=== PATIENT | female | born 1995 | race Caucasian/White ===

== ENCOUNTER 2016-06-03 17:15 | Emergency (ER) | payer OTHER ==
[2016-06-03 18:16] VITALS: BP 126/73
--- NOTE | 2016-06-03 18:32 | ER Document Report ---
ED Medical Screen (RME) - General Stated Complaint: HEADACHE Notes: 20 yo female c/o frontal headache. hx/o daily migraines but pt c/o visual disturbance with double vision x 2 days. no fever. no n/v. + photosensitivity. no relief with Tylenol. Pt is 30 weeks . OB - Dr Damon TRAVEL OUTSIDE OF THE [place] IN LAST 30 DAYS: No - Related Data Allergies/Adverse Reactions: No Known Allergies Allergy (Unverified 12/24/15 09:59) Past Medical History - Immunizations Hx Diphtheria, Pertussis, Tetanus Vaccination: Yes Physical Exam - Vital signs Vitals: Temp Pulse Resp BP Pulse Ox 98.1 F 95 18 126/73 H 100 06/03/16 18:13 06/03/16 18:13 06/03/16 18:13 06/03/16 18:13 06/03/16 18:13 Course - Vital Signs Vital signs: Temp Pulse Resp BP Pulse Ox 98.1 F 95 18 126/73 H 100 06/03/16 18:13 06/03/16 18:13 06/03/16 18:13 06/03/16 18:13 06/03/16 18:13
[2016-06-03 19:30] LABS: APPEARANCE,URINE CLEAR; BILIRUBIN,URINE NEGATIVE (NEGATIVE); GLUCOSE, URINE NEGATIVE (NEGATIVE); KETONES,URINE NEGATIVE (NEGATIVE); LEUKOCYTE ESTERASE,URINE NEGATIVE (NEGATIVE); NITRITE,URINE NEGATIVE (NEGATIVE); PROTEIN,URINE NEGATIVE (NEGATIVE); URINE SPECIFIC GRAVITY 1.014; UROBILINOGEN,URINE NEGATIVE mg/dL (<2.0)
--- NOTE | 2016-06-04 06:00 | L&D General Admission ---
General Admit Datetime Report Generated by CPN: 06/04/2016 06:00 INFORMATION Patient Age: 20 (06/03/2016 16:59:QS system process) EDC: 08/08/2016 00:00 (06/03/2016 17:09:Nadia Vitrano, RN) ALLERGIES Medication Allergies: No Known Allergies (12/24/2015) (06/03/2016 16:59:QS system process) DEMOGRAPHICS Address: [address] [place] [address] [place] [address] (06/03/2016 16:59:QS system process) Zipcode: [address] (06/03/2016 16:59:QS system process) Home (06/03/2016 16:59:QS system process) SSN: [id number] (06/03/2016 16:59:QS system process) Next of Kin Name: SALO CA (06/03/2016 16:59:QS system process) Next of Kin (06/03/2016 16:59:QS system process) Next of Kin Relationship: SPO (06/03/2016 16:59:QS system process) Date of : 1995 (06/03/2016 16:59:QS system process) Marital Status: (06/03/2016 16:59:QS system process) Sex: Female (06/03/2016 16:59:QS system process) Race: (06/03/2016 16:59:QS system process) Ethnicity: Non- or (06/03/2016 16:59:QS system process) Faith: None (06/03/2016 16:59:QS system process)
== END 2016-06-03 22:20 | disposition left against medical advice (07) ==
LOC: EDSTATUS 17:15 → ER 17:15
DX: O26.893 Other specified pregnancy related conditions, third trimester (principal); R51 Headache; H53.149 Visual discomfort, unspecified; H53.2 Diplopia; Z3A.30 30 weeks gestation of pregnancy; Z53.20 Procedure and treatment not carried out because of patient's decision for unspecified reasons
CPT/HCPCS: 81001; 99281

== ENCOUNTER 2016-07-12 10:17 | Outpatient (CLI) | payer OTHER ==
[2016-07-12 11:11] LABS: APPEARANCE,URINE SLIGHTLY-CLOUDY; BILIRUBIN,URINE NEGATIVE (NEGATIVE); GLUCOSE, URINE NEGATIVE (NEGATIVE); KETONES,URINE NEGATIVE (NEGATIVE); LEUKOCYTE ESTERASE,URINE LARGE (NEGATIVE); NITRITE,URINE NEGATIVE (NEGATIVE); PROTEIN,URINE NEGATIVE (NEGATIVE); URINE SPECIFIC GRAVITY 1.006; UROBILINOGEN,URINE NEGATIVE mg/dL (<2.0)
[2016-07-12 11:30] LABS: URINE BARBITURATES SCREEN NEGATIVE; URINE METHADONE SCREEN NEGATIVE; URINE OPIATES LOW NEGATIVE; URINE PHENCYCLIDINE SCREEN NEGATIVE
== END 2016-07-12 11:35 | disposition home or self-care (01) ==
LOC: LC 10:17
PROVIDERS: ATTEND Obstetrics & Gynecology
PROC: 4A1HXCZ Monitoring of Products of Conception, Cardiac Rate, External Approach (ICD-10-PCS; principal; 2016-07-12)
DX: O47.03 False labor before 37 completed weeks of gestation, third trimester (principal); Z3A.36 36 weeks gestation of pregnancy
CPT/HCPCS: 59025; 80307; 81001

== ENCOUNTER 2016-07-22 15:07 | Outpatient (CLI) | payer OTHER ==
[2016-07-22 16:08] LABS: APPEARANCE,URINE SLIGHTLY-CLOUDY; BILIRUBIN,URINE NEGATIVE (NEGATIVE); GLUCOSE, URINE NEGATIVE (NEGATIVE); KETONES,URINE NEGATIVE (NEGATIVE); LEUKOCYTE ESTERASE,URINE LARGE (NEGATIVE); NITRITE,URINE NEGATIVE (NEGATIVE); PROTEIN,URINE NEGATIVE (NEGATIVE); URINE SPECIFIC GRAVITY 1.006; UROBILINOGEN,URINE NEGATIVE mg/dL (<2.0)
[2016-07-22 16:28] LABS: URINE BARBITURATES SCREEN NEGATIVE; URINE METHADONE SCREEN NEGATIVE; URINE OPIATES LOW NEGATIVE; URINE PHENCYCLIDINE SCREEN NEGATIVE
[2016-07-22 17:38] LABS: ABSOLUTE LYMPHOCYTES (AUTO) 0.9 10^3/uL (0.5-4.7); ABSOLUTE NEUT (AUTO) 10.8 10^3/uL (1.7-8.2); BASOPHILS % (AUTO) 0.2 % (0-2); EOSINOPHILS % (AUTO) 0.2 % (0-6); HEMATOCRIT 26.1 % (36.0-47.0); HEMOGLOBIN 8.6 g/dL (12.0-15.5); HGB HCT DIFFERENCE -0.3; LYMPHOCYTES % (AUTO) 6.8 % (13-45); MEAN CORPUSCULAR HEMOGLOBIN 27.6 pg (27.0-33.4); MEAN CORPUSCULAR HGB CONC 33.1 g/dL (32.0-36.0); MEAN CORPUSCULAR VOLUME 84 fl (80-97); MONOCYTES % (AUTO) 8.2 % (3-13); RED BLOOD COUNT 3.13 10^6/uL (3.72-5.28); SEGMENTED NEUTROPHILS % (AUTO) 84.6 % (42-78); WHITE BLOOD COUNT 12.7 10^3/uL (4.0-10.5)
--- NOTE | 2016-07-22 18:33 | Non Stress Test Report ---
Non Stress Test Datetime Report Generated by CPN: 07/22/2016 18:33 DEMOGRAPHIC EGA NST: 37.4 EGA NST: 35.1 INDICATION Indication for Study: Ordered by Provider Indication for Study: Other Indication for Study (NST) Other: lc VITAL SIGNS Temperature - NST: 98.7 MONITORING Monitor Explained: Monitor Explained; Test Explained; Patient Verbalized Understanding Monitor Explained: Monitor Explained; Test Explained; Patient Verbalized Understanding Time on Monitor: 07/22/2016 15:31 Time on Monitor: 07/05/2016 10:30 Time off Monitor: 07/22/2016 17:58 Time off Monitor: 07/12/2016 11:30 NST Duration: 147 NST Duration: 12349 NST INTERVENTIONS NST Interventions: PO Hydration; Reposition Patient NST Interventions: PO Hydration; Reposition Patient Physician Notified NST: Dr. Tamez BABY A: [id number] BABY A Movement : Present Contraction Frequency : Irregular Contraction Frequency : 2-4 FHR Baseline : 135 FHR Baseline : 120 Accelerations : 15X15 Accelerations : 15X15 Decelerations : None Decelerations : None Variability : Moderate 6-25bpm Variability : Moderate 6-25bpm NST Review: Meets Criteria for Reactive NST NST Review: Meets Criteria for Reactive NST NST Review and Verified By : Sanam Morillo RNC NST Review and Verified By : César Mock, RN NST Results: Reactive NST Results: Reactive NST REPORT Report Trigger: Send Report
== END 2016-07-22 18:07 | disposition home or self-care (01) ==
LOC: LC 15:07
PROVIDERS: ATTEND Obstetrics & Gynecology
PROC: 4A1HXCZ Monitoring of Products of Conception, Cardiac Rate, External Approach (ICD-10-PCS; principal; 2016-07-22)
DX: O47.1 False labor at or after 37 completed weeks of gestation (principal); Z3A.37 37 weeks gestation of pregnancy
CPT/HCPCS: 36415; 59025; 80307; 81005; 85025

== ENCOUNTER 2016-07-30 15:25 | Outpatient (CLI) | payer OTHER ==
[2016-07-30 16:07] LABS: APPEARANCE,URINE CLEAR; BILIRUBIN,URINE NEGATIVE (NEGATIVE); GLUCOSE, URINE NEGATIVE (NEGATIVE); KETONES,URINE NEGATIVE (NEGATIVE); LEUKOCYTE ESTERASE,URINE NEGATIVE (NEGATIVE); NITRITE,URINE NEGATIVE (NEGATIVE); PROTEIN,URINE NEGATIVE (NEGATIVE); URINE SPECIFIC GRAVITY 1.004; UROBILINOGEN,URINE NEGATIVE mg/dL (<2.0)
[2016-07-30 16:29] LABS: URINE BARBITURATES SCREEN NEGATIVE; URINE METHADONE SCREEN NEGATIVE; URINE OPIATES LOW NEGATIVE; URINE PHENCYCLIDINE SCREEN NEGATIVE
--- NOTE | 2016-07-30 17:19 | Non Stress Test Report ---
Non Stress Test Datetime Report Generated by CPN: 07/30/2016 17:18 DEMOGRAPHIC EGA NST: 38.5 INDICATION Indication for Study: Ordered by Provider Indication for Study (NST) Other: LC MONITORING Monitor Explained: Monitor Explained; Test Explained; Patient Verbalized Understanding Time on Monitor: 07/30/2016 15:49 Time off Monitor: 07/30/2016 17:02 NST Duration: 73 NST INTERVENTIONS NST Interventions: PO Hydration Physician Notified NST: Dr. Beltran BABY A Movement : Present Contraction Frequency : none FHR Baseline : 135 Accelerations : 15X15 Decelerations : None Variability : Moderate 6-25bpm NST Review: Meets Criteria for Reactive NST NST Review and Verified By : João Jerry RN NST Results: Reactive NST REPORT Report Trigger: Send Report
--- NOTE | 2016-07-30 20:21 | L&D Discharge Summary ---
OB Discharge Summary Datetime Report Generated by CPN: 07/30/2016 20:21 DISCHARGE DIAGNOSIS Diagnosis/Symptoms: False Labor Diagnoses/Symptoms Other: Not in Labor Gestation: 37.4 Number of Babies in Womb: 1 Parity: 0 DIET/ACTIVITY/RESTRICTIONS Diet: Regular Activity: Normal Activity TEACHING/INSTRUCTIONS/REFERRALS Instructions Given To: pt, pt Instructions Understood: Patient Verbalized Understanding Referrals: None Educational Materials- Other: kick counts, term labor DISCHARGE INFORMATION Discharged AMA: No Physician Notified of Disch AMA: Dr Beltran Discharge Date/Time: 07/30/2016 07:09 Discharged To: Home Discharge Provider Name: Dr. Beltran Accompanied By: Discharge Method: Ambulatory Condition: Stable FOLLOW UP INFORMATION Follow Up With: [facility] Follow Up On: As Scheduled Follow Up Phone Number: [facility] - Comments: Pt instructed to start taking iron and vitamin C supplement 3x/day. Pt verbalized understanding. GENERAL INSTR-CALL PROVIDER IF: Contractions: Contractions or cramps become more frequent than 8 in one hour or 4 in 20 minutes; Regular painful contractions every 5 minutes or less for one hour. Time your contractions from the beginning of one to the beginning of the next Gush of Fluid/Blood: Gush of fluid or blood from your vagina (it is normal to have spotting after vaginal exam or intercourse) Decreased Movement: Your baby is not moving as much as usual- 4 movements in 1 hour after drinking and resting on side Temperature: Temperature greater than 100.0(F) orally
== END 2016-07-30 17:09 | disposition home or self-care (01) ==
LOC: LC 15:25
PROVIDERS: ATTEND Obstetrics & Gynecology
PROC: 4A1HXCZ Monitoring of Products of Conception, Cardiac Rate, External Approach (ICD-10-PCS; principal; 2016-07-30)
DX: O47.1 False labor at or after 37 completed weeks of gestation (principal); Z3A.37 37 weeks gestation of pregnancy
CPT/HCPCS: 59025; 80307; 81005

== ENCOUNTER 2016-07-31 08:34 | Inpatient (IN) | payer OTHER ==
[2016-07-31] MEDS ORDERED: RINGERS SOLUTION,LACTATED 1,000 ML IV ONE (09:07)
[2016-07-31] MEDS ORDERED: RINGERS SOLUTION,LACTATED 1,000 ML IV PRN ×2 (09:07)
[2016-07-31] MEDS ORDERED: DEXTROSE 5%-LACTATED RINGERS 1,000 ML IV PRN (09:07)
[2016-07-31] MEDS ORDERED: RINGERS SOLUTION,LACTATED 300 ML IV ONE (09:07)
[2016-07-31] MEDS ORDERED: PENICILLIN G POTASSIUM 5,000,000 UNIT in DEXTROSE 5%-WATER 100 ML IV ONE (09:07)
[2016-07-31] MEDS ORDERED: PENICILLIN G-K 5 MILLION UNIT VIAL ONE ×2 (09:12→13:20)
[2016-07-31 09:20] LABS: APPEARANCE,URINE SLIGHTLY-CLOUDY; BILIRUBIN,URINE NEGATIVE (NEGATIVE); GLUCOSE, URINE NEGATIVE (NEGATIVE); KETONES,URINE NEGATIVE (NEGATIVE); LEUKOCYTE ESTERASE,URINE SMALL (NEGATIVE); NITRITE,URINE NEGATIVE (NEGATIVE); PROTEIN,URINE NEGATIVE (NEGATIVE); URINE SPECIFIC GRAVITY 1.011; UROBILINOGEN,URINE NEGATIVE mg/dL (<2.0)
[2016-07-31] MEDS ORDERED: EPHEDRINE SULFATE INJ 50 MG/1 ML AMPULE ONE (09:42)
[2016-07-31] MEDS ORDERED: FENTANYL CITRATE INJ/PF 100 MCG/2 ML AMPUL ONE (09:42)
[2016-07-31] MEDS ORDERED: PHENYLEPHRINE HCL INJ/PF 10 MG/1 ML SDV ONE (09:42)
[2016-07-31] MEDS ORDERED: MISOPROSTOL 0.2 MG TABLET ONE (09:42)
[2016-07-31] MEDS ORDERED: FENTANYL/BUPIVACAINE/NS/PF 200 MCG/100 ML RTUINJ EPI ONE (09:42)
[2016-07-31] MEDS ORDERED: LIDOCAINE 1% INJ-PF (10 MG/ML) 30 ML SDV ONE (09:43)
[2016-07-31] MEDS ORDERED: BUPIVACAINE HCL 0.25 % INJ/PF (2.5 MG/1 ML) 30 ML VIAL ONE (09:43)
[2016-07-31] MEDS ORDERED: OXYTOCIN/NORMAL SALINE 20 UNIT/1,000 ML RTUINJ ONE (09:43)
[2016-07-31 09:44] LABS: URINE BARBITURATES SCREEN NEGATIVE; URINE METHADONE SCREEN NEGATIVE; URINE OPIATES LOW NEGATIVE; URINE PHENCYCLIDINE SCREEN NEGATIVE
[2016-07-31 09:51] LABS: ABSOLUTE EOSINOPHILS # (AUTO) 0.1 10^3/uL (0.0-0.6); ABSOLUTE LYMPHOCYTES (AUTO) 0.8 10^3/uL (0.5-4.7); ABSOLUTE MONOCYTES (AUTO) 0.8 10^3/uL (0.1-1.4); ABSOLUTE NEUT (AUTO) 11.5 10^3/uL (1.7-8.2); BASOPHILS % (AUTO) 0.2 % (0-2); EOSINOPHILS % (AUTO) 0.4 % (0-6); HEMATOCRIT 27.6 % (36.0-47.0); HGB HCT DIFFERENCE -0.6; LYMPHOCYTES % (AUTO) 6.3 % (13-45); MEAN CORPUSCULAR HEMOGLOBIN 26.8 pg (27.0-33.4); MEAN CORPUSCULAR HGB CONC 32.5 g/dL (32.0-36.0); MEAN CORPUSCULAR VOLUME 82 fl (80-97); RED BLOOD COUNT 3.35 10^6/uL (3.72-5.28); SEGMENTED NEUTROPHILS % (AUTO) 87.1 % (42-78); WHITE BLOOD COUNT 13.2 10^3/uL (4.0-10.5)
[2016-07-31] MEDS: PENICILLIN G POTASSIUM 2,500,000 UNIT in DEXTROSE 5%-WATER 50 ML IV SCH ×2 (13:27→17:36)
[2016-07-31] MEDS ORDERED: OXYTOCIN/NORMAL SALINE 1,000 ML IV PRN ×2 (13:52→17:11)
[2016-07-31] MEDS: BENZOCAINE/MENTHOL SORE THROAT LOZENGE BUCCAL PRN ×2 (13:55→17:17)
[2016-07-31] MEDS ORDERED: GLYCERIN/WITCH HAZEL LEAF 1 EACH MED..PAD TP PRN (17:11)
[2016-07-31] MEDS ORDERED: PROMETHAZINE HCL INJ 25 MG/1 ML VIAL IV PRN (17:11)
[2016-07-31] MEDS ORDERED: DIBUCAINE 1% OINTMENT 28 GM TP PRN (17:11)
[2016-07-31] MEDS ORDERED: NA PHOS,M-B/NA PHOS,DI-BA (ADULT) 133 ML ENEMA PR PRN (17:11)
[2016-07-31] MEDS ORDERED: MEASLES,MUMPS&RUBELLA VACC/PF 0.5 ML VIAL SUBCUT PRN (17:11)
[2016-07-31] MEDS ORDERED: MAGNESIUM HYDROXIDE SUSP 30 ML UDCUP PO PRN (17:11)
[2016-07-31] MEDS ORDERED: ACETAMINOPHEN WITH CODEINE #3 TABLET PO PRN ×2 (17:11)
[2016-07-31] MEDS ORDERED: MISOPROSTOL 0.2 MG TABLET PR ONE (17:11)
[2016-07-31] MEDS ORDERED: BENZOCAINE/MENTHOL AEROSOL SPRAY 56 ML TOP PRN (17:11)
[2016-07-31] MEDS ORDERED: DIPH/PERTUSS(ACELL)/TETANUS VAC/PF 0.5 ML SYR (>=10YO) IM PRN (17:11)
[2016-07-31] MEDS ORDERED: DIPHENHYDRAMINE HCL 25 MG CAPSULE PO PRN (17:11)
[2016-07-31] MEDS ORDERED: PSEUDOEPHEDRINE HCL 30 MG TABLET PO PRN (17:11)
[2016-07-31] MEDS ORDERED: PROMETHAZINE HCL 25 MG SUPP.RECT PR PRN (17:11)
[2016-07-31] MEDS ORDERED: PROMETHAZINE HCL 25 MG TABLET PO PRN (17:11)
[2016-07-31] MEDS ORDERED: ACETAMINOPHEN 650 MG SUPP.RECT PR PRN (17:11)
[2016-07-31 17:36] LABS: ARTERIAL BLOOD BASE EXCESS -4.7 mmol/L; ARTERIAL BLOOD O2 SATURATION 57.9 % (94-98)
--- NOTE | 2016-07-31 17:39 | Delivery Summary ---
Del Sum A-C Datetime Report Generated by CPN: 07/31/2016 17:39 DELIVERY PERSONNEL DELIVERY PERSONNEL: [id number];[id number] Delivery Doctor:: Vibha Prater CNM Labor and Delivery Nurse:: Rachel Jerry RNretirement benefits specialist Nurse:: Lindsay Braun RN Nitro Worker/FIRE TECHNICIAN: ST Castillo Nitro Worker/FIRE TECHNICIAN: Roxanne Andrea, APPAREL PATTERN MAKER Additional Personnel: : LAWRENCE Ortiz MATERNAL INFORMATION Delivery Anesthesia: Epidural Medications After Delivery: Pitocin Bolus-Please Comment; Pitocin Drip 20 Units/1000ml NSS Meds After Delivery Comment: 1000mcg Cytotec MN Estimated Blood Loss (ml): 300 Maternal Complications: Prolonged Second Stage > 2 Hrs Provider Comments: DDelivery of vertex and pt stopped pushing, Rachel and suprapubic pressure with delivery of shoulders after 30 seconds, pt again stopped pushing and took 2 minutes to deliver body, poor maternal effort, baby delivered and placed on mom' abd, cord clamped and cut and placed in warmer for stimulation Rachel, Superpubic, NO lateral traction, Dystocia was from poor maternal effort nuchal cord x 1, easily reduced Spont delivery of meconium stained placenta and visible calcifications FFFM, IV Pitocin, cytotec 1000mcg via rectum vaginal laceration repaired Baby sent to nursery for evaluation and crying and moving all extremeties LABOR SUMMARY EDC: 08/08/2016 00:00 No. Babies in Womb: 1 Attempted: No Labor Anesthesia: Epidural LABOR INFORMATION Reason for Induction: Not Applicable Onset of Labor: 07/31/2016 04:00 Complete Dilatation: 07/31/2016 14:39 Oxytocin: Augmentation Group B Beta Strep: positive Antibiotics # of Doses: 2 Antibiotics Time of Last Dose: 1327 Name of Antibiotic Given: PCN Steroids Given: None Reason Steroids Not Administered: Not Applicable MEMBRANES Membranes Rupture Method: Artificial Rupture of Membranes: 07/31/2016 13:45 Length of Rupture (hr): 2.98 Amniotic Fluid Color: Clear Amniotic Fluid Amount: Small Amniotic Fluid Odor: Normal STAGES OF LABOR Stage 1 hr: 10 Stage 1 min: 39 Stage 2 hr: 2 Stage 2 min: 5 Stage 3 hr: 0 Stage 3 min: 2 Total Time in Labor hr: 12 Total Time in Labor min: 46 VAGINAL DELIVERY Episiotomy: None Laceration Extension: First Degree Laceration Type: Vaginal Laceration Repair: Yes CSECTION DELIVERY Primary Indication: N/A Secondary Indication: N/A CSection Incidence: N/A Labor: N/A Elective: N/A CSection Incision: N/A BABY A INFORMATION Delivery Date/Time: 07/31/2016 16:44 Method of Delivery: Vaginal Born in Route : No : N/A Forceps: N/A Vacuum Extraction: N/A Shoulder Dystocia : Yes SHOULDER DYSTOCIA BABY A Delivery of Head: 07/31/2016 16:42 Time Head to Delivery : 2.0 1st Intervention to Resolve: McRobert's Maneuver 2nd Intervention to Resolve: Suprapubic Pressure Verify NO Fundal Pressure: No Fundal Pressure Applied Arm Under Symphisis at Del: Right Shoulder Dystocia Comments: Shoulder delivered with maneuvers after 30 seconds, followed by poor maternal effort with delivery of body. PRESENTATION/POSITION BABY A Presentation: Cephalic Cephalic Presentation: Vertex Vertex Position: Right Occipital Anterior Breech Presentation: N/A PLACENTA INFORMATION BABY A Placenta Delivery Time : 07/31/2016 16:46 Placenta Method of Delivery: Spontaneous Placenta Status: Delivered SCORES BABY A Heart Rate 1 min: >100 bpm Resp Effort 1 min: Absent Reflex Irritability 1 min: No Response Muscle Tone 1 min: Flaccid Color 1 min: Blue/Pale Resuscitation Effort 1 min: Tactile Stimulation; Oxygen; PPV/NCPAP SCORE 1 MIN: 2 Heart Rate 5 min: >100 bpm Resp Effort 5 min: Good Cry Reflex Irritability 5 min: Cough or Sneeze or Pulls Away Muscle Tone 5 min: Some Flexion of Extremities Color 5 min: Blue/Pale Resuscitation Effort 5 min: Tactile Stimulation SCORE 5 MIN: 7 INFANT INFORMATION BABY A Gestational Age at Delivery: 38.6 Gestational Status: Early Term- 37- 38.6 Weeks Outcome : Liveborn Condition : Stable Infant Sex: Male IDENTIFICATION BABY A Verification Date/Time: 07/31/2016 16:55 ID Band Number: [id number] Mother's Name Verified: Yes RN Verifying Infant: Anjali Servin, RN/Carmen RooneyjadePILOC WEIGHT/LENGTH BABY A Birthweight (gm): 4165 Infant Weight (lb): 9 Weight (oz): 3 Length (in): 20.50 Infant Length (cm): 52.07 CORD INFORMATION BABY A No. Cord Vessels: 3 Nuchal Cord : Around Neck x1, Loose Cord Blood Taken: Yes-For Eval (Mom's Blood Type - or O+) Suction: Mouth; Nose ASSESSMENT BABY A Complications: Meconium; Shoulder Dystocia Complications- Other: terminal meconium Physical Findings at Delivery: Molding of the Head Respirations: Grunting; Intercostal Retractions; Nasal Flaring Skin to Skin: No Powder Shoveler/ALS Called : Yes Infant Care By: Carmen Lerma RNC Transferred To: [facility] BABY B INFORMATION : N/A
[2016-07-31] MEDS ORDERED: CEFAZOLIN 2 GM/D5W RTU 50 ML IV PRN (18:24)
[2016-07-31] MEDS ORDERED: CEFAZOLIN 2 GM/D5W RTU 2 GM/50 ML RTUPB IV ONE (18:28)
[2016-07-31] MEDS: FERROUS SULFATE 325 MG TABLET PO SCH (19:38)
[2016-07-31] MEDS: DOCUSATE SODIUM 100 MG CAPSULE PO SCH (19:38)
[2016-07-31] MEDS ORDERED: OXYCODONE HCL IR 5 MG TABLET PO PRN (20:02)
[2016-07-31] MEDS ORDERED: ACETAMINOPHEN 325 MG TABLET PO PRN (20:08)
--- NOTE | 2016-07-31 20:34 | Admission Physical ---
Datetime Report Generated by CPN: 07/31/2016 20:33 CURRENT ADMISSION Hx Assessment: The History has been Reviewed and is Current Chief Complaint: Uterine Contractions Indication for Induction: Not Applicable Admit Plan: Admit to Unit; Initiate Labor Protocol ALLERGIES Medication Allergies: No Medication Allergies: No Known Allergies (07/31/2016) Medication Allergies: No Known Allergies (06/03/2016) Latex: No Latex Allergies Food Allergies: no Environmental Allergies: no OBSTETRICAL HISTORY EDC: 08/08/2016 00:00 : 1 Para: 0 Term: 0 : 0 SAB: 0 IAB: 0 Ectopic: 0 Livin Cesareans: 0 VBACs: 0 Multiple Births: 0 Gestational Diabetes: No Rh Sensitization: No Incompetent Cervix: No JOELLE: No Infertility: No ART Treatment: No Uterine Anomaly: No IUGR: No Hx Previous C/S: No Macrosomia: No Hx Loss/Stillborn: No PIH: No Hx : No Placenta Previa/Abruption: No Depression/PP Depression: No PTL/PROM: No Post Hemorrhage: No Current Procedures: Ultrasound Obstetrical History Comments: G1; current SEE RECORDS Alcohol: No Marijuana : No Cocaine: No Other Illicit Drugs: No Cigarettes: Never Smoker. [id number] MEDICAL HISTORY Diabetes: No Blood Transfusion: No Pulmonary Disease (Asthma, TB): No Breast Disease: No Hypertension: No Product Representative Surgery: No Heart Disease: No Hosp/Surgery: No Autoimmune Disorder: No Anesthetic Complications: No Kidney Disease: No Abnormal Pap Smear: No Neuro/Epilepsy: No Psychiatric Disorders: No Other Medical Diseases: No Hepatitis/Liver Disease: No Significant Family History: No Varicosities/Phlebitis: No Trauma/Violence : No Thyroid Dysfunction: No Medical History Comments: +GBS 1 1/2 yr ago INFECTIOUS HISTORY Gonorrhea: No Genital Herpes: No Chlamydia: No Tuberculosis: No Syphilis: No Hepatitis: No HIV/AIDS Exposure: No Rash or Viral Illness: No HPV: No PHYSICAL EXAM General: Normal HEENT: Normal Neurologic: Normal Thyroid: Normal Heart: Normal Lungs: Normal Breast: Deferred Back: Normal Abdomen: Normal Genitourinary Exam: Normal Extremities: Normal DTRs: Normal Pelvic Type: Adequate Physical Exam Comments: + GBS anemia Vital Signs: Reviewed FETUS A EGA: 38.6 Monitoring: External US FHR- Baseline: 120 Variability: Moderate 6-25bpm Accelerations: 15X15 Decelerations: None Admit Comment: Admit in active labor, Cat [address] Mcpherson on unit and aware of admission PLANS FOR LABOR AND DELIVERY Labor and Delivery: None Pain Management: Epidural Feeding Preference: Breast Benefit of Breast Feed Discussed: Yes Circumcision: Yes INFORMED CONSENT Assignment: Casey Mcpherson DO Signature: with User ID: [email or web address] : with User ID: [email or web address]
[2016-07-31] MEDS: IBUPROFEN 800 MG TABLET PO SCH (23:29)
[2016-07-31] MEDS: FAMOTIDINE 20 MG TABLET PO SCH (23:30)
[2016-07-31] MEDS: CEFAZOLIN 2 GM/D5W RTU 50 ML IV SCH (23:31)
--- NOTE | 2016-07-31 23:33 | L&D Discharge Summary ---
OB Discharge Summary Datetime Report Generated by CPN: 07/31/2016 23:32 DISCHARGE DIAGNOSIS Diagnosis/Symptoms: False Labor Diagnoses/Symptoms Other: Not in Labor Gestation: 38.6 Number of Babies in Womb: 1 Parity: 0 DIET/ACTIVITY/RESTRICTIONS Diet: Regular Activity: Normal Activity TEACHING/INSTRUCTIONS/REFERRALS Instructions Given To: pt, pt Instructions Understood: Patient Verbalized Understanding Referrals: None Educational Materials- Other: kick counts, term labor DISCHARGE INFORMATION Discharged AMA: No Physician Notified of Disch AMA: Dr Beltran Discharge Date/Time: 07/30/2016 07:09 Discharged To: Home Discharge Provider Name: Dr. Beltran Accompanied By: Discharge Method: Ambulatory Condition: Stable FOLLOW UP INFORMATION Follow Up With: [facility] Follow Up On: As Scheduled Follow Up Phone Number: [facility] - Comments: Pt instructed to start taking iron and vitamin C supplement 3x/day. Pt verbalized understanding. GENERAL INSTR-CALL PROVIDER IF: Contractions: Contractions or cramps become more frequent than 8 in one hour or 4 in 20 minutes; Regular painful contractions every 5 minutes or less for one hour. Time your contractions from the beginning of one to the beginning of the next Gush of Fluid/Blood: Gush of fluid or blood from your vagina (it is normal to have spotting after vaginal exam or intercourse) Decreased Movement: Your baby is not moving as much as usual- 4 movements in 1 hour after drinking and resting on side Temperature: Temperature greater than 100.0(F) orally
[2016-08-01] MEDS: IBUPROFEN 800 MG TABLET PO SCH ×3 (06:53→21:53)
[2016-08-01] MEDS: CEFAZOLIN 2 GM/D5W RTU 50 ML IV SCH ×2 (06:54→13:31)
--- NOTE | 2016-08-01 08:41 | PDOC PROGRESS REPORT ---
Subjective-OB Subjective: Post Delivery Day: 20 year old. Denies any needs at this time Doing well, no c/o, baby improving, problem with sugar, scant bleeding, Physical Exam (OB) Vital Signs: Temp Pulse Resp BP Pulse Ox 97.6 F 88 16 115/59 L 98 08/01/16 04:51 07/31/16 23:49 07/31/16 23:49 07/31/16 23:49 07/31/16 23:49 Intake & Output 07/31/16 08/01/16 08/02/16 06:59 06:59 06:59 Weight 81.8 kg - Lochia Lochia Amount: Small 10-25 ml Lochia Color: Rubra/Red - Abdomen Description: Soft, Round Hernia Present: No Fundal Description: Firm Fundal Height: u/u - u/2 Objective-Diagnostic Laboratory: 07/31/16 07/31/16 07/31/16 08:54 09:40 09:40 WBC 13.2 H RBC 3.35 L Hgb 9.0 L Hct 27.6 L MCV 82 MCH 26.8 L MCHC 32.5 RDW 15.0 H Plt Count 389 Seg Neutrophils % 87.1 H Lymphocytes % 6.3 L Monocytes % 6.0 Eosinophils % 0.4 Basophils % 0.2 Absolute Neutrophils 11.5 H Absolute Lymphocytes 0.8 Absolute Monocytes 0.8 Absolute Eosinophils 0.1 Absolute Basophils 0.0 Carbonic Acid HCO3/H2CO3 Ratio ABG pH ABG pCO2 ABG pO2 ABG HCO3 ABG O2 Saturation ABG Base Excess FiO2 Urine Color YELLOW Urine Appearance SLIGHTLY-CLOUDY Urine pH 6.0 Ur Specific [place] 1.011 Urine Protein NEGATIVE Urine Glucose (UA) NEGATIVE Urine Ketones NEGATIVE Urine Blood NEGATIVE Urine Nitrite NEGATIVE Ur Leukocyte Esterase SMALL H Blood Type B NEGATIVE Antibody Screen POSITIVE 07/31/16 16:44 WBC RBC Hgb Hct MCV MCH MCHC RDW Plt Count Seg Neutrophils % Lymphocytes % Monocytes % Eosinophils % Basophils % Absolute Neutrophils Absolute Lymphocytes Absolute Monocytes Absolute Eosinophils Absolute Basophils Carbonic Acid 1.15 HCO3/H2CO3 Ratio 17:1 ABG pH 7.35 ABG pCO2 38.2 ABG pO2 31.8 L* ABG HCO3 20.4 ABG O2 Saturation 57.9 L ABG Base Excess -4.7 FiO2 ROOMAIR Urine Color Urine Appearance Urine pH Ur Specific [place] Urine Protein Urine Glucose (UA) Urine Ketones Urine Blood Urine Nitrite Ur Leukocyte Esterase Blood Type Antibody Screen Assessment and Plan(PN) - Assessment and Plan (1) GBS (group B Streptococcus carrier), +RV culture, currently Is this a current diagnosis for this admission?: Yes (3) Rh negative, delivered, current hospitalization Is this a current diagnosis for this admission?: Yes - Disposition Anticipated Discharge: Home Within: within 24 hours
[2016-08-01 08:43] LABS: HEMATOCRIT 26.1 % (36.0-47.0); HEMOGLOBIN 8.4 g/dL (12.0-15.5); HGB HCT DIFFERENCE -0.9; MEAN CORPUSCULAR HEMOGLOBIN 26.4 pg (27.0-33.4); MEAN CORPUSCULAR HGB CONC 32.1 g/dL (32.0-36.0); MEAN CORPUSCULAR VOLUME 82 fl (80-97); RED BLOOD COUNT 3.18 10^6/uL (3.72-5.28); RED CELL DISTRIBUTION WIDTH 15.1 % (11.5-14.0); WHITE BLOOD COUNT 15.9 10^3/uL (4.0-10.5)
[2016-08-01] MEDS: DOCUSATE SODIUM 100 MG CAPSULE PO SCH ×2 (09:51→17:30)
[2016-08-01] MEDS: FERROUS SULFATE 325 MG TABLET PO SCH ×2 (09:51→17:30)
[2016-08-01] MEDS: SENNOSIDES/DOCUSATE 8.6-50 MG 1 EACH TABLET PO SCH (09:52)
[2016-08-01] MEDS: FAMOTIDINE 20 MG TABLET PO SCH ×2 (09:52→21:53)
[2016-08-01] MEDS: PRENATAL VITAMIN W-O CA NO5/FE FUMARATE/FA CAPSULE PO SCH (09:52)
[2016-08-01] MEDS: BENZOCAINE/MENTHOL SORE THROAT LOZENGE BUCCAL PRN (19:38)
[2016-08-02] MEDS: IBUPROFEN 800 MG TABLET PO SCH ×2 (06:15→14:09)
--- NOTE | 2016-08-02 06:33 | PDOC DISCHARGE SUMMARY ---
Final Diagnosis Discharge Date: 08/02/16 - Final Diagnosis (1) GBS (group B Streptococcus carrier), +RV culture, currently Is this a current diagnosis for this admission?: Yes (2) Normal vaginal delivery Is this a current diagnosis for this admission?: Yes (3) Rh negative, delivered, current hospitalization Is this a current diagnosis for this admission?: Yes Discharge Data - Discharge Medication Home Medications: Vit #105/Iron/FA/Dha [Prena1 True Combo Pack] 1 each PO DAILY 07/12/16 Ascorbic Acid [Vitamin C 500 mg Tablet] 500 mg PO DAILY 07/22/16 Iron,Carbonyl/Vit C/Vit B12/FA [Iron 100 Plus Tablet] 1 each PO DAILY 07/22/16 Oseltamivir Phosphate [Tamiflu] 75 mg PO BID 07/30/16 Promethazine HCl 25 mg PO PRN PRN 07/30/16 Procedures: NST, Ultrasound Intrapartum Procedure(s): Spontaneous Vaginal Delivery Complication(s): Laceration-Periurethral - Diagnosis Test Laboratory: Temp Pulse Resp BP Pulse Ox 98.5 F 81 16 123/81 98 08/02/16 04:15 08/02/16 04:15 08/02/16 04:15 08/02/16 04:15 08/02/16 04:15 07/31/16 07/31/16 08/01/16 08:54 09:40 08:00 RBC 3.35 L 3.18 L Hgb 9.0 L 8.4 L Hct 27.6 L 26.1 L Urine Opiates Screen NEGATIVE - Discharge information/Instructions Discharge Activity: Activity As Tolerated Discharge Diet: As Tolerated, Regular Disposition: HOME, SELF-CARE Follow up with: [facility] in: 4, Weeks
--- NOTE | 2016-08-02 08:42 | PDOC DISCHARGE SUMMARY ---
Final Diagnosis Discharge Date: 08/02/16 - Final Diagnosis (1) GBS (group B Streptococcus carrier), +RV culture, currently Is this a current diagnosis for this admission?: Yes (2) Normal vaginal delivery Is this a current diagnosis for this admission?: Yes (3) Rh negative, delivered, current hospitalization Is this a current diagnosis for this admission?: Yes Discharge Data - Discharge Medication Home Medications: Vit #105/Iron/FA/Dha [Prena1 True Combo Pack] 1 each PO DAILY 07/12/16 Ascorbic Acid [Vitamin C 500 mg Tablet] 500 mg PO DAILY 07/22/16 Iron,Carbonyl/Vit C/Vit B12/FA [Iron 100 Plus Tablet] 1 each PO DAILY 07/22/16 Oseltamivir Phosphate [Tamiflu] 75 mg PO BID 07/30/16 Promethazine HCl 25 mg PO PRN PRN 07/30/16 Gestational Age: 38.6 Reason(s) for Admission: Onset of Labor, Group B Strep Positive Procedures: NST, Ultrasound Intrapartum Procedure(s): Spontaneous Vaginal Delivery Complication(s): Laceration-Vaginal - Data Baby 1 Male at 1 minute: 2 at 5 minutes: 7 Weight: 4.167 kg Home with Mother: Yes Complications: No - Diagnosis Test Laboratory: Temp Pulse Resp BP Pulse Ox 98.7 F 93 16 130/70 H 99 08/02/16 07:38 08/02/16 07:38 08/02/16 07:38 08/02/16 07:38 08/02/16 07:38 07/31/16 07/31/16 08/01/16 08:54 09:40 08:00 RBC 3.35 L 3.18 L Hgb 9.0 L 8.4 L Hct 27.6 L 26.1 L Urine Opiates Screen NEGATIVE - Discharge information/Instructions Discharge Activity: Activity As Tolerated Discharge Diet: As Tolerated, Regular Disposition: HOME, SELF-CARE Follow up with: [facility] in: 4, Weeks
[2016-08-02] MEDS: SENNOSIDES/DOCUSATE 8.6-50 MG 1 EACH TABLET PO SCH (09:54)
[2016-08-02] MEDS: FERROUS SULFATE 325 MG TABLET PO SCH (09:54)
[2016-08-02] MEDS: PRENATAL VITAMIN W-O CA NO5/FE FUMARATE/FA CAPSULE PO SCH (09:55)
[2016-08-02] MEDS: FAMOTIDINE 20 MG TABLET PO SCH (09:55)
[2016-08-02] MEDS: DOCUSATE SODIUM 100 MG CAPSULE PO SCH (09:55)
[2016-08-02 16:28] VITALS: BP 128/72
== END 2016-08-02 18:07 | disposition home or self-care (01) | DRG 775 ==
LOC: LC 08:34 → LR 09:14 → 2N 20:15
PROVIDERS: ADMIT Obstetrics & Gynecology; ATTEND Obstetrics & Gynecology
PROC: 10E0XZZ Delivery of Products of Conception, External Approach (ICD-10-PCS; principal; 2016-07-31)
PROC: 10907ZC Drainage of Amniotic Fluid, Therapeutic from Products of Conception, Via Natural or Artificial Opening (ICD-10-PCS; 2016-07-31)
PROC: 0HQ9XZZ Repair Perineum Skin, External Approach (ICD-10-PCS; 2016-07-31)
PROC: 3E0234Z Introduction of Serum, Toxoid and Vaccine into Muscle, Percutaneous Approach (ICD-10-PCS; 2016-08-01)
DX: O69.81X0 Labor and delivery complicated by cord around neck, without compression, not applicable or unspecified (principal); O71.4 Obstetric high vaginal laceration alone; O36.0930 Maternal care for other rhesus isoimmunization, third trimester, not applicable or unspecified; O63.1 Prolonged second stage (of labor); O99.824 Streptococcus B carrier state complicating childbirth; O66.0 Obstructed labor due to shoulder dystocia; O77.0 Labor and delivery complicated by meconium in amniotic fluid; Z3A.38 38 weeks gestation of pregnancy; Z37.0 Single live birth
CPT/HCPCS: 36415; 80307; 81005; 82803; 85025; 85027; 85461; 86592; 86850; 86870; 86900; 86901; 86920; 86922; 88307; 94760; 99465; J0690; J2370; J2540; J2590; J2790; J3010; J3490